=== PATIENT | male | born 1965 | race Caucasian/White ===

== ENCOUNTER → 2016-07-14 | Outpatient (CLI) | payer BC ==
[~2016-07-14] MED LIST: ADVIN25/60 INH; ADVIN50/60 INH; ASCO10003 PO; ATOR-22 PO; EPP3/2 IM; LUTE1CAP6 PO; MULT-506 PO; OMEG10007 PO; POTA1TAB PO; PRVHFAIN INH; RXC5 PO
--- NOTE | 2016-07-14 13:07 | DIAGNOSTIC IMAGING REPORT ---
MRI LUMBAR SPINE W/O CONTRAST CLINICAL HISTORY: Persistent low back pain with lumbar radiculopathy. TECHNIQUE: Sagittal and axial T1, T2 and STIR images were obtained. COMPARISON STUDY: No previous studies for comparison. OBSERVATIONS: There is irregularity the L4-5 disc with adjacent endplate marrow edema. There are no findings to indicate an associated paraspinal abscess. Diagnostic considerations include a discitis versus degenerative erosive disc disease. Correlation with a sedimentation rate and white count is recommended. L1-2: No disc protrusions or extrusions. No evidence of spinal canal or neural foraminal compromise. L2-3: No disc protrusions or extrusions. No evidence of spinal canal or neural foraminal compromise. L3-4: No disc protrusions or extrusions. No evidence of spinal canal or neural foraminal compromise. L4-5: There is a circumferential disc bulge. There is no significant spinal or foraminal stenosis L5-S1: No disc protrusions or extrusions. No evidence of spinal canal or neural foraminal compromise. The conus medullaris and cauda equina appear normal. IMPRESSION: 1. Mild circumferential disc bulge at the L4-5 level 2. Endplate irregularity at the L4-5 level with irregularity of the L4-5 disc, and inferior L4 and superior L5 endplate edema. There is no associated paraspinal abscess. Diagnostic considerations include advanced degenerative disc disease versus a discitis/osteomyelitis. Degenerative disc disease is favored. Please correlate with clinical findings as well as with a white count and sedimentation rate Electronically signed by: Jeancarlos Stratton M.D. 07/14/2016 1:05 PM Dictated Date/Time: 07/14/2016 12:59 PM
== END | disposition home or self-care (01) ==
LOC: C.MRIBC 11:27
PROVIDERS: ATTEND Pain Medicine Interventional Pain Medicine
DX: M47.816 Spondylosis without myelopathy or radiculopathy, lumbar region (principal)